=== PATIENT | male | born 1970 | race Caucasian/White ===

== ENCOUNTER 2017-07-29 06:18 | Day surgery (SDC) | payer BC ==
[2017-07-28 08:47] VITALS: BMI 22.1
--- NOTE | 2017-07-28 23:18 | HP ---
DATE OF ADMISSION: 07/29/2017 SHORT STAY HISTORY AND PHYSICAL HISTORY OF PRESENT ILLNESS: This is a 47-year-old male who comes in for colonoscopy. The patient has family history of colon cancer. Apparently, his mother had colon cancer several years ago. The patient never had a colonoscopy. The patient has no specific GI symptoms. He comes for c olonoscopy for colon cancer screening. ALLERGIES: None. SOCIAL HISTORY: The patient does not smoke but drinks alcohol socially. MEDICAL ILLNESSES: Hyperlipidemia. PHYSICAL EXAMINATION: VITAL SIGNS: Pulse is 70, blood pressure 130/70. HEENT: Conjunctivae are clear. CARDIOVASCULAR SYSTEM: First and second heart sounds normal. LUNGS: Clear to auscultation. ABDOMEN: Soft to palpate. No organomegaly. No tenderness. No masses. EXTREMITIES: Reveal no edema. ADMITTING DIAGNOSIS: A 47-year-old male with a family history of colon cancer. PLAN: Screening colonoscopy.
[2017-07-29] MEDS ORDERED: Propofol 200 MG/20 ML VIAL ONE (08:01)
--- NOTE | 2017-07-29 12:45 | OP ---
DATE OF SURGERY: 07/29/2017 OPERATIVE PROCEDURE: Colonoscopy. PREOPERATIVE DIAGNOSIS: A 47-year-old male with family history of colon cancer. The augie ent has no specific gastrointestinal symptoms. The patient comes in for a colonoscopy. POSTOPERATIVE DIAGNOSIS: Normal colonoscopy. PROCEDURE NOTE: The patient was placed on his left lateral position and was given sedation by [facility]. A rectal exam was done before the scope was advanced into the rectum. No lesions were found on rectal exam. A [employer] video colonoscope was introduced into the rectum and advanced all the way to the cecum. Although the patient did not have any solid fecal material, the mucosa wa s coated with stool throughout the colon. Water was used to irrigate and wash out. The appendiceal orifice, ileocecal valve, cecum, no pathology seen. The ascending colon and hepatic flexure, no pa thology seen. The transverse colon, splenic flexure, descending colon, and sigmoid colon or rectum, no lesions. DISCHARGE PLANNING: This is a 47-year-old male with family history of colon cancer. The patient came in for colonoscopy. The colonoscopy was negative. DISCHARGE RECOMMENDATIONS: 1. The patient advised to call me if he develops abdominal pain, hematochezia. 2. Repeat colonoscopy in 3 years.
== END 2017-07-29 09:10 | disposition home or self-care (01) ==
LOC: SDC 06:18
PROVIDERS: ATTEND Internal Medicine Gastroenterology
PROC: 0DJD8ZZ Inspection of Lower Intestinal Tract, Via Natural or Artificial Opening Endoscopic (ICD-10-PCS; principal; 2017-07-29)
DX: Z12.11 Encounter for screening for malignant neoplasm of colon (principal); E78.5 Hyperlipidemia, unspecified; Z79.899 Other long term (current) drug therapy; Z90.89 Acquired absence of other organs; Z80.0 Family history of malignant neoplasm of digestive organs
CPT/HCPCS: J2704